=== PATIENT | female | born 1950 | race American Indian/Alaskan Native ===

== ENCOUNTER 2021-10-17 18:48 | Emergency (ER) | payer MEDICARE ==
[2021-10-18] MEDS ORDERED: MORPHINE 4 MG/1 ML INJ IV ONE (00:37)
[2021-10-18] MEDS ORDERED: ONDANSETRON 4 MG/2 ML INJ IV ONE (00:37)
[2021-10-18] MEDS ORDERED: dexAMETHasone 20 MG/5 ML VIAL IV ONE (00:37)
[2021-10-18 01:01] LABS: Basophils # (Auto) 0.1 K/mm3 (0.0-0.1); Eosinophils # (Auto) 0.1 K/mm3 (0.0-0.4); Eosinophils % (Auto) 0.5 % (0.0-4.3); Hematocrit 39.8 % (30.3-42.9); Hemoglobin 13.2 gm/dl (10.1-14.3); Lymphocytes # (Auto) 3.7 K/mm3 (1.2-5.4); Lymphocytes % (Auto) 30.5 % (13.4-35.0); Mean Corpuscular HGB Conc 33 % (30-34); Mean Corpuscular Volume 79 fl (79-97); Monocytes # (Auto) 0.8 K/mm3 (0.0-0.8); Monocytes % (Auto) 6.3 % (0.0-7.3); Platelet Count 384 K/mm3 (140-440); Red Blood Count 5.07 M/mm3 (3.65-5.03); Red Cell Distribution Width 13.8 % (13.2-15.2)
[2021-10-18 01:27] LABS: Alanine Aminotransferase 19 units/L (7-56); Albumin 3.7 g/dL (3.9-5); BUN/Creatinine Ratio 18; Blood Urea Nitrogen 14 mg/dL (7-17); Calcium 9.5 mg/dL (8.4-10.2); Hemolysis Index 38
--- NOTE | 2021-10-18 02:22 | Cat Scan Report ---
CT abdomen pelvis w con INDICATION / CLINICAL INFORMATION: Abdominal pain, low back pain. TECHNIQUE: Axial CT images were obtained through the abdomen and pelvis after 100 cc of Omnipaque [address] scans at this location are performed using CT dose reduction for ALARA by means of automated exposure control. COMPARISON: None available. FINDINGS: LOWER CHEST: 8 mm perifissural nodule in the right middle lobe. This is of doubtful clinical signific ant. No routine follow-up is required. No acute airspace disease in the lung bases. LIVER: No significant abnormality GALLBLADDER/BILIARY TREE: No significant abnormality PANCREAS: No significant abnormality SPLEEN: No significant abnormality ADRENALS: No significant abnormality RIGHT KIDNEY / URETER: Small right renal cyst. No acute abnormality. No hydronephrosis. LEFT KIDNEY / URETER: 6 mm nonobstructive stone in the anterior mid calyx. No urolithiasis or hydrone phrosis. URINARY BLADDER: No significant abnormality REPRODUCTIVE ORGANS: Uterus is absent. No significant adnexal abnormality. STOMACH / BOWEL: Stomach is unremarkable. Small bowel and colon demonstrate no evidence of mechanical obstruction or inflammation. The appendix is normal in caliber. LYMPH NODES: No significant adenopathy. VASCULATURE: Moderate atherosclerotic calcification without acute abnormality. OTHER: No free air, free fluid, or focal fluid collection is identified. SKELETAL SYSTEM: No acute osseous findings. Moderate disc space height loss at L5-S1 and moderate-sev ere lower lumbar facet arthropathy. No worrisome central canal narrowing. There is mild bilateral sac roiliitis, right slightly greater than left. IMPRESSION: 1. No acute abnormality. 2. 6 mm nonobstructive left renal stone. No urolithiasis or hydronephrosis of either collecting syste m. 3. Other chronic and incidental findings as above. Signer Name: Brian Wilson MD Signed: 10/18/2021 2:18 AM Workstation Name: [id number]
[2021-10-18] MEDS ORDERED: TAMSULOSIN 0.4 MG CAP PO ONE (02:31)
--- NOTE | 2021-10-18 03:47 | Emergency Department Report ---
ED Abdominal Pain HPI - General Chief Complaint: Back Pain/Injury Stated Complaint: BACK PAIN Source: patient Mode of arrival: Ambulatory Limitations: No Limitations - History of Present Illness Initial Comments: Patient is a 70-year-old -[place] female with a history of hypertension, zpa-thtwuji-iadhzaqac diabetes, chronic low back pain and sciatica and chronic osteoarthritis who presents to the ED with complaint of acute onset persistent diffuse lower abdominal pain that radiates to the lower back and flanks as well as lower back pain that radiates to the left leg for the last 2 to 3 months, worse in the last 1 week. Patient states that the pain has been constant and worse especially with movement in the last 2 days. Patient states that she has not taken any medications for pain despite having severe pain. Patient also states that she slipped and fell at home about 3 months ago but never sought any medical evaluation. Patient states the pain is since then resolved but returned about 2 weeks ago. Patient denies dizziness, syncope, seizures, chest pain, shortness of breath, nausea and vomiting, diarrhea, dysuria, urinary frequency and urgency, numbness and tingling or weakness of lower extremities bilaterally. MD Complaint: abdominal pain (Lower abdominal pain), flank pain (Left flank pain), other (Low back pain that radiates to the left leg) -: month(s) (3) Location: diffuse, bilateral flank Radiation: suprapubic, bilateral flank, back (Low back) Migration to: no migration Severity: severe Severity scale (0 -10): 8 Quality: aching, sharp Consistency: constant Improves With: nothing Worsens With: movement Associated Symptoms: denies other symptoms, nausea. denies: vomiting, diarrhea, fever, chills, constipation, dysuria, hematemesis, hematochezia, melena, hematuria, anorexia, syncope - Related Data Previous Rx's Medication Instructions Recorded Last Taken Type Baclofen 20 mg PO Q12H PRN #24 tab 10/18/21 Unknown Rx Naproxen 500 mg PO Q12H PRN #30 tab 10/18/21 Unknown Rx Ondansetron [Zofran Odt] 4 mg PO Q8HR PRN #15 tab.rapdis 10/18/21 Unknown Rx traMADoL [Ultram] 50 mg PO Q6HR PRN #12 tablet 10/18/21 Unknown Rx Allergies Allergy/AdvReac Type Severity Reaction Status Date / Time No Known Allergies Allergy Verified 10/17/21 20:31 ED Review of Systems ROS: Stated complaint: BACK PAIN Other details as noted in HPI Constitutional: denies: chills, fever Eyes: denies: eye pain, eye discharge, vision change ENT: denies: ear pain, throat pain Respiratory: denies: cough, shortness of breath, wheezing Cardiovascular: denies: chest pain, palpitations Endocrine: no symptoms reported Gastrointestinal: abdominal pain, nausea. denies: diarrhea Genitourinary: denies: urgency, dysuria, discharge Musculoskeletal: back pain (Low back pain that radiates to the left leg), arthr algia (Left hip pain). denies: joint swelling Skin: denies: rash, lesions Neurological: denies: headache, weakness, paresthesias Psychiatric: denies: anxiety, depression Hematological/Lymphatic: denies: easy bleeding, easy bruising ED Past Medical Hx - Past Medical History Hx Hypertension: Yes Hx Diabetes: Yes Hx Arthritis: Yes Additional medical history: Chronic low back pain; hyperlipidemia - Medications Home Medications: Home Medications Medication Instructions Recorded Confirmed Last Taken Type Baclofen 20 mg PO Q12H PRN #24 tab 10/18/21 Unknown Rx Naproxen 500 mg PO Q12H PRN #30 tab 10/18/21 Unknown Rx Ondansetron [Zofran Odt] 4 mg PO Q8HR PRN #15 tab.rapdis 10/18/21 Unknown Rx traMADoL [Ultram] 50 mg PO Q6HR PRN #12 tablet 10/18/21 Unknown Rx ED Physical Exam - General Limitations: No Limitations General appearance: alert, in no apparent distress - Head Head exam: Present: atraumatic, normocephalic, normal inspection - Eye Eye exam: Present: normal appearance, PERRL, EOMI Pupils: Present: normal accommodation - ENT ENT exam: Present: normal exam, normal orophraynx, mucous membranes moist, TM's normal bilaterally, normal external ear exam - Neck Neck exam: Present: normal inspection, full ROM. Absent: tenderness - Respiratory Respiratory exam: Present: normal lung sounds bilaterally. Absent: respiratory distress, wheezes, rales, rhonchi, chest wall tenderness, accessory muscle use, decreased breath sounds, prolonged expiratory - Cardiovascular Cardiovascular Exam: Present: regular rate, normal rhythm, normal heart sounds. Absent: systolic murmur, diastolic murmur, rubs, gallop - GI/Abdominal GI/Abdominal exam: Present: soft, tenderness (Palpable mild diffuse abdominal tenderness, bilateral flank tenderness), normal bowel sounds. Absent: guarding, rebound, hyperactive bowel sounds, hypoactive bowel sounds, organomegaly - Extremities Exam Extremities exam: Present: normal inspection, full ROM, normal capillary refill. Absent: tenderness - Back Exam Back exam: Present: normal inspection, full ROM, tenderness (Palpable lumbosacral paraspinal musculoskeletal tenderness), muscle spasm, paraspinal tenderness, vertebral tenderness. Absent: CVA tenderness (R), CVA tenderness (L), rash noted - Neurological Exam Neurological exam: Present: alert, oriented X3, CN II-XII intact, normal gait, reflexes normal - Psychiatric Psychiatric exam: Present: normal affect, normal mood - Skin Skin exam: Present: warm, dry, intact, normal color. Absent: rash ED Course Vital Signs 10/17/21 19:43 Temperature 99.4 F Pulse Rate 95 H Respiratory 16 Rate Blood Pressure 153/71 O2 Sat by Pulse 100 Oximetry ED Medical Decision Making - Lab Data Result diagrams: 10/18/21 00:42 10/18/21 00:42 - Radiology Data Radiology results: report reviewed, [place] [address] Cat Scan Report Signed Patient: KYAW PEDERSON MR#: [id number] : 1950 Acct:[id number] Age/Sex: 70 / F ADM Date: 10/17/21 Loc: ED Attending Dr: Ordering Physician: MARCY POMPA Date of Service: 10/18/21 Procedure(s): CT abdomen pelvis w con Accession Number(s): [id number] cc: MARCY POMPA CT abdomen pelvis w con INDICATION / CLINICAL INFORMATION: Abdominal pain, low back pain. TECHNIQUE: Axial CT images were obtained through the abdomen and pelvis after 100 cc of Omnipaque [address] scans at this location are performed using CT dose reduction for ALARA by means of automated exposure control. COMPARISON: None available. FINDINGS: LOWER CHEST: 8 mm perifissural nodule in the right middle lobe. This is of doubtful clinical significant. No routine follow-up is required. No acute airspace disease in the lung bases. LIVER: No significant abnormality GALLBLADDER/BILIARY TREE: No significant abnormality PANCREAS: No significant abnormality SPLEEN: No significant abnormality ADRENALS: No significant abnormality RIGHT KIDNEY / URETER: Small right renal cyst. No acute abnormality. No hydronephrosis. LEFT KIDNEY / URETER: 6 mm nonobstructive stone in the anterior mid calyx. No urolithiasis or hydronephrosis. URINARY BLADDER: No significant abnormality REPRODUCTIVE ORGANS: Uterus is absent. No significant adnexal abnormality. STOMACH / BOWEL: Stomach is unremarkable. Small bowel and colon demonstrate no evidence of mechanical obstruction or inflammation. The appendix is normal in caliber. LYMPH NODES: No significant adenopathy. VASCULATURE: Moderate atherosclerotic calcification without acute abnormality. OTHER: No free air, free fluid, or focal fluid collection is identified. SKELETAL SYSTEM: No acute osseous findings. Moderate disc space height loss at L5-S1 and moderate- severe lower lumbar facet arthropathy. No worrisome central canal narrowing. There is mild bilateral sacroiliitis, right slightly greater than left. IMPRESSION: 1. No acute abnormality. 2. 6 mm nonobstructive left renal stone. No urolithiasis or hydronephrosis of either collecting system. 3. Other chronic and incidental findings as above. Signer Name: Pancho Wilson MD Signed: 10/18/2021 2:18 AM Workstation Name: [id number] Transcribed By: LEE Dictated By: PANCHO WILSON MD Electronically Authenticated By: PANCHO WILSON MD Signed Date/Time: 10/18/21217 DD/ 2 TD/TT: - Medical Decision Making This is a 70-year-old -[place] female with a history of hypertension, [id number]-mmxffdqls diabetes, chronic low back pain and sciatica and chronic osteoarthritis who presents to the ED with complaint of acute onset persistent diffuse lower abdominal pain that radiates to the lower back and flanks as well as lower back pain that radiates to the left leg for the last 2 to 3 months, worse in the last 1 week. Patient states that the pain has been constant and worse especially with movement in the last 2 days. Patient states that she has not taken any medications for pain despite having severe pain. Patient also states that she slipped and fell at home about 3 months ago but never sought any medical evaluation. Patient states the pain is since then resolved but returned about 2 weeks ago. In the ED, patient is alert and oriented x3 and is not in any distress. Patient was treated for pain in the ED and also given a ntiemetics. Lab test results were reviewed and showed acute leukocytosis of 12,200. The abdomen pelvis CT scan with IV contrast showed no acute abnormalities except for a 6 mm nonobstructive left renal stone. No urolithiasis or hydronephrosis of either collecting system. It also showed moderate disc space height loss at L5-S1 and moderate-severe lower lumbar facet arthropathy. No worrisome central canal narrowing. There is mild bilateral sacroiliitis, right slightly greater than left. On reevaluation, patient's pain is well controlled medication. Patient was discharged home on pain medications and advised to follow-up with her primary care physician in 7 to 10 days for reevaluation. Patient was also advised to consider following up with a urologist Dr. Lopez for further evaluation of kidney stone. Patient was advised to return to the ED immediately if symptoms get worse. - Differential Diagnosis UTI; Colitis; Diverticulitis; Kidney stones; Sciatica; Muscle spasm Critical care attestation.: If time is entered above; I have spent that time in minutes in the direct care of this critically ill patient, excluding procedure time. ED Disposition Clinical Impression: Bilateral flank pain, Spasm of muscle of lower back, Kidney stone on left side Chronic low back pain with left-sided sciatica Qualifiers: Back pain laterality: left Qualified Code(s): M54.42 - Lumbago with sciatica, left side Disposition: 01 HOME / SELF CARE / HOMELESS Is pt being admited?: No Does the pt Need Aspirin: No Condition: Stable Instructions: Muscle Cramps and Spasms, [id number], Renal Colic, Easy -to-Read, Sciatica, [id number], Flank Pain, Adult, [id number], Chronic Back Pain, [id number] Additional Instructions: All lab test results were reviewed and are all nonactionable. Abdomen pelvis CT scan with contrast showed no acute abnormalities except for a 6 mm no nobstructive left renal stone. No urolithiasis or hydronephrosis of either collecting system. It also showed moderate disc space height loss at L5-S1 and moderate-severe lower lumbar facet arthropathy. No worrisome central canal narrowing. There is mild bilateral sacroiliitis, right slightly greater than left. Therefore take medications with food, drink plenty of fluids and follow- up with your primary care physician in 5 to 7 days for reevaluation. Consider following up with a urologist Dr. Lopez for further evaluation of kidney stone. Otherwise return to the ED immediately if symptoms get worse. Prescriptions: Baclofen 20 mg PO Q12H PRN #24 tab PRN Reason: Pain , Severe (7-10) Naproxen 500 mg PO Q12H PRN #30 tab PRN Reason: Pain , Severe (7-10) traMADoL [Ultram] 50 mg PO Q6HR PRN #12 tablet PRN Reason: Pain Ondansetron [Zofran Odt] 4 mg PO Q8HR PRN #15 tab.rapdis PRN Reason: Nausea Referrals: [facility] [Provider Group] - 7-10 days Time of Disposition: 03:49 Print Language: IRISH
[2021-10-18 04:31] LABS: Mucus,Urine FEW /HPF
[2021-10-18 04:39] LABS: Bilirubin,Urine Negative (Negative); Blood,Urine Negative (Negative); Color,Urine Straw (Yellow)
[2021-10-18 04:40] LABS: Urobilinogen,Urine < 2.0 mg/dL (<2.0)
[2021-10-18 06:04] VITALS: BP 157/74
== END 2021-10-18 06:03 | disposition home or self-care (01) ==
LOC: ED 18:48
DX: M62.830 Muscle spasm of back (principal); M51.17 Intervertebral disc disorders with radiculopathy, lumbosacral region; N20.0 Calculus of kidney; I10 Essential (primary) hypertension; E11.9 Type 2 diabetes mellitus without complications; M19.90 Unspecified osteoarthritis, unspecified site; Z79.899 Other long term (current) drug therapy
CPT/HCPCS: 36415; 74177; 80053; 81001; 83690; 85025; 87086; 96374; 96375; 99284; J1100; J2270; J2405; Q9967